=== PATIENT | male | born 1965 | race Caucasian/White ===

== ENCOUNTER → 2023-12-21 06:20 | Day surgery (SDC) | payer OTHER, SELFPAY | LOC: GI 06:20 | PROVIDERS: ATTENDING PHYSICIAN Internal Medicine | DX: Z12.11 Encounter for screening for malignant neoplasm of colon (principal); Z86.010 Personal history of colon polyps; K57.30 Diverticulosis of large intestine without perforation or abscess without bleeding; K64.8 Other hemorrhoids; K63.5 Polyp of colon | CPT/HCPCS: 45380; 88305 ==

== ENCOUNTER → 2024-10-24 12:43 | Outpatient (REF) | payer SELFPAY | LOC: RAD 12:43 | PROVIDERS: ATTENDING PHYSICIAN Family Medicine | DX: E78.2 Mixed hyperlipidemia (principal) | CPT/HCPCS: 75571 ==

== ENCOUNTER → 2025-03-08 09:31 | Outpatient (REF) | payer OTHER, SELFPAY | LOC: DHSLP 09:31 | PROVIDERS: ATTENDING PHYSICIAN Internal Medicine Cardiovascular Disease; FAMILY PHYSICIAN Family Medicine | DX: G47.33 Obstructive sleep apnea (adult) (pediatric) (principal) | CPT/HCPCS: 95800 ==